=== PATIENT | male | born 1980 | race Caucasian/White ===

== ENCOUNTER 2017-03-02 12:00 | Emergency (ER) | payer SELFPAY ==
[2017-03-02 12:06] VITALS: BP 115/66
[2017-03-02] MEDS ORDERED: LIDOCAINE 4% TOPICAL SOLN 50 ML TOP ONE (13:58)
[2017-03-02] MEDS ORDERED: PENICILLIN V POTASSIUM 500 MG TABLET PO ONE (13:58)
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
[2017-03-02] MEDS ORDERED: LIDOCAINE 2% VISCOUS SOLN 20 ML UDCUP PO ONE (14:22)
== END 2017-03-02 14:44 | disposition home or self-care (01) ==
LOC: ER 12:00
DX: K02.9 Dental caries, unspecified (principal); F17.210 Nicotine dependence, cigarettes, uncomplicated; Z87.820 Personal history of traumatic brain injury
CPT/HCPCS: 99282; J3490